=== PATIENT | female | born 1995 | race Caucasian/White ===

== ENCOUNTER 2023-03-14 18:46 | Outpatient (CLI) | payer MEDICAID, OTHER ==
[2023-03-14 19:30] VITALS: BP 132/75
[2023-03-14 19:42] VITALS: BP 130/69
--- NOTE | 2023-03-16 13:48 | Physician Query-Final Dx ---
ANDREW,03/16/23 1348: Clinic Account Progress/Dx Physician Query: Please give diagnosis Please include # weeks gestation Date of Service March 14, 2023 at 18:46 ASHLEY VILLAFANA DO 03/17/23 1818: Clinic Account Progress/Dx DIAGNOSIS: Diagnosis 39 wk GA contractions, not in active labor ANDREW,NovMarch 16, 2023 13:48 ASHLEY VILLAFANA DO March 17, 2023 18:18
== END 2023-03-14 19:57 | disposition home or self-care (01) ==
LOC: WSo 18:46 → LDRP 18:46 → WSo 19:57
PROVIDERS: ATTEND Family Medicine
DX: O47.1 False labor at or after 37 completed weeks of gestation (principal); Z3A.39 39 weeks gestation of pregnancy
CPT/HCPCS: 99213

== ENCOUNTER 2023-03-28 17:09 | Inpatient (IN) | payer MEDICAID ==
[~2023-03-28] VITALS: Ht 170 cm; Wt 127.0 kg
--- OUTSIDE RECORDS SUMMARY | 2023-03-28 17:32 | XMS REPORT | Clinical Summary ---
Author Author [facility] Organization [facility] Address Unknown Phone Unavailable Care Team Providers Care Manager Green Name Role Phone Chinyere Delaney APRN PCP Allergies Comments Active Allergy Reactions Criticality Noted Date Ondansetron Hcl 03/07/2023 Medications End Date Status Medication Sig Dispensed Refills Start Date Active famotidine (PEPCID) 20 MG 0 tablet Active Problems Estimated Date of Delivery Comments Yes 03/23/2023 No additional problems on file Encounters Care Team Description Date Type Department Rafita Adams MD Pelvic pain in , antepartum, th ird trimester (Primary Dx) Discharge Disposition: Another Health Care Institution Not Defined 03/07/2023 Emergency [facility] 12:19 AM [facility] CDT - [address] [facility] 03/07/2023 [place] [address] 12:48 AM [phone] CDT from Last 3 Months Social History Date Tobacco Use Types Packs/Day Years Used Smoking Tobacco: Every Cigarettes 0.5 Day Smokeless Tobacco: Never Tobacco Cessation: Ready to Quit: Not As ked; Counseling Given: Not Answered Comments Alcohol Use Standard Drinks/Week Never 0 (1 standard drink = 0.6 o z pure alcohol) Date Recorded PHQ-2 Answer 03/07/2023 Part 1 Score: 0 Date Recorded [facility] Transportation Needs Answer Transportation Needs Not on file 03/07/2023 In the next 24 hours or after discharge, are you No in a situation where housing, food, or transportation is a concern, or does th e patient demonstrate the inability to care for s elf that could result in imminent harm Date Recorded [facility] Food Insecurity Answer Food Insecurity Not on file 03/07/2023 In the next 24 hours or after discharge, are you No in a situation where housing, food, or transportation is a concern, or does th e patient demonstrate the inability to care for s elf that could result in imminent harm Date Recorded [facility] Housing Answer Housing Insecurity Not on file 03/07/2023 In the next 24 hours or after discharge, are you No in a situation where housing, food, or transportation is a concern, or does th e patient demonstrate the inability to care for s elf that could result in imminent harm Estimated Date of Delivery Comments Yes 03/23/2023 Date Recorded Sex and Gender Information Value Sex Assigned at Not on file Gender Identity Not on file Sexual Orientation Not on file Last Filed Vital Signs Reading Time Taken Comments Vital Sign 129/68 03/07/2023 12:32 AM CDT Blood Pressure 93 03/07/2023 12:32 AM CDT Pulse 36.1 C (97 F) 03/07/2023 12:32 AM CDT Temperature 17 03/07/2023 12:32 AM CDT Respiratory Rate 97% 03/07/2023 12:20 AM CDT Oxygen Saturation - - Inhaled Oxygen Concentration 121.6 kg (268 lb) 03/07/2023 12:05 AM CDT Weight 172.7 cm (5' 8") 03/07/2023 12:05 AM CDT Height 40.75 03/07/2023 12:05 AM CDT Body Mass Index Plan of Treatment Health Maintenance Due Date Last Done Comments Hepatitis C Screen 1994 Td/Tdap# 1994 Tobacco Cessation 1994 Counseling # COVID-19 Vaccine (#1) 03/05/1995 Pneumococcal Vaccine: 2000 Pediatrics (0 to 5 Years) and At-Risk Patients (6 to 64 Years) (1 - PCV) Cervical Cancer Screening 2015 via Pap Smear Social Determinants of 11/14/2022 Health# Influenza Vaccine (Season 08/14/2023 Ended) Results Not on filefrom Last 3 Months Insurance Type Payer Benefit Subscriber ID Effective Phone Address Plan / Dates Group MEDICAID MANAGED CARE [facility] [id number] 2022- [address] [facility] [employer] [address] [place] [address] Care Teams Start Date End Date Manager Green Relationship Specialty 10/01/22 Chinyere Delaney APRN PCP - General Family Medicine [address] [place] [address]
--- OUTSIDE RECORDS SUMMARY | 2023-03-28 17:32 | XMS REPORT ---
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 confirmed 455443693 Problem Amenorrhea N91.2 confirmed 47276561 Problem Gallstones and inflammation of gallbladder with obstructio n K80.19 Problem resolved confirmed ALLERGIES No Known Allergies ENCOUNTERS from 1994 to 2023-02-21 Encounter Location Date Provider Diagnosis [facility] [address] [facility] [id number] [place] [address] Feb, SILVERIO ENCARNACION IMMUNIZATIONS Vaccine Route Administration Date Status PRIVATE TDAP (BOOSTRIX) IM Intramuscular January 19, 2023 Adminis tered influenza IIV4 (history) Unknown Oct 06, 2022 Adminis tered SOCIAL HISTORY Sex Assigned At : Social History Observation Description Sex Assigned At Unknown Alcohol Screen (Audit-C) Question Answer Notes Did you have a drink containing alcohol in the past year? No Points 0 Interpretation Negative PHQ2 Question Answer Notes In the last 2 weeks, how often have you had little interest or pleasure in doing things? Not at all In the last 2 weeks, how often have you been feeling down, depressed, or hopeless? Not at all Total PHQ2 Score 0 REASON FOR REFERRAL No Information VITAL SIGNS No information MEDICATIONS No Information PROCEDURES No Information RESULTS No Results REASON FOR VISIT Re:Financial Assistance Application Completed MEDICAL (GENERAL) HISTORY Type Description Date Medical History Meningitis Medical History Gallstones and inflammation of gallbladder with obstruction (resolved 02/15/2023) Surgical History Amputation of right leg 1993 Surgical History Galbladder removal 10/05/2022 Hospitalization History sugeries Hospitalization History Galbladder surgey 09/2022 Goals Section No Information Health Concerns No Information MEDICAL EQUIPMENT No Information MENTAL STATUS No Information FUNCTIONAL STATUS No Information ASSESSMENTS No Information PLAN OF TREATMENT Next Appt Details Provider Name:JAIMEE GARCIA, 2023-03-02 08 :40:00 AM, [address] [place] [address], [phone], Provider Name:JAIMEE GARCIA 2023-03-09 08 :40:00 AM, [address] [place] [address], [phone], Provider Name:JAIMEE GARCIA, 2023-03-16 08 :40:00 AM, [address] [place] [address], [phone], Provider Name:JOSE ANTONIO JEAN, 2023-03-23 09:00:00 AM, [address] [place] [address], [phone], Provider Name:JAIMEE GARCIA, 2023-03-28 08 :40:00 AM, [address] [place] [address], [phone], Provider Name:MICKI DUARTE, 2023-07-11 09:00:00 AM, [address] [facility], [id number], [address], Insurance Providers Payer Name Payer Address Payer Phone Insured Name Patient Relati onship to Insured Coverage Start Date Coverage End Date Subscriber Number Group Nu mber [employer] [address] [employer] [facility] [address] Madeline Vogt Self - patient is the insured [id number] [place] [address] [address] [facility] [address] Madeline Vogt Self - patient is the insured [id number] [place] [address] [address] [facility] [address] Madeline Vogt Self - patient is the insured [id number]
--- OUTSIDE RECORDS SUMMARY | 2023-03-28 17:32 | XMS REPORT | Encounter Summary ---
Author Author [facility] Organization [facility] Address Unknown Phone Unavailable Care Team Providers Care Continuous Drier Helper Name Role Phone Chinyere Delaney APRN PCP Reason for Visit * Reason Comments Problem Pain in sides and abdomin s tarting at 8pm has not felt baby move in 6 hrs. Emesis x1. 37 weeks 4 days. Dilated 3 w eeks ago at 1 with contractions when seen in [place]. Encounter Details Care Team Description Date Type Department Rafita Adams MD [address] [place] [address] Pelvic pain in , antepartum, th ird trimester (Primary Dx) Discharge Disposition: Another Health Care Institution Not Defined 03/07/2023 Emergency [facility] 12:19 AM [facility] CDT - [address] [facility] 03/07/2023 [place] [address] 12:48 AM [phone] CDT Social History Date Tobacco Use Types Packs/Day Years Used Smoking Tobacco: Every Cigarettes 0.5 Day Smokeless Tobacco: Never Tobacco Cessation: Ready to Quit: Not As ked; Counseling Given: Not Answered Comments Alcohol Use Standard Drinks/Week Never 0 (1 standard drink = 0.6 o z pure alcohol) Date Recorded PHQ-2 Answer 03/07/2023 Part 1 Score: 0 Date Recorded [facility] Transportation Needs Answer Transportation Needs Not on file 03/07/2023 In the next 24 hours or after discharge, are you No in a situation where housing, food, or transportation is a concern, or does th e patient demonstrate the inability to care for s elf that could result in imminent harm Date Recorded [facility] Food Insecurity Answer Food Insecurity Not on file 03/07/2023 In the next 24 hours or after discharge, are you No in a situation where housing, food, or transportation is a concern, or does th e patient demonstrate the inability to care for s elf that could result in imminent harm Date Recorded [facility] Housing Answer Housing Insecurity Not on file 03/07/2023 In the next 24 hours or after discharge, are you No in a situation where housing, food, or transportation is a concern, or does th e patient demonstrate the inability to care for s elf that could result in imminent harm Date Recorded Sex and Gender Information Value Sex Assigned at Not on file Gender Identity Not on file Sexual Orientation Not on file documented as of this encounter Last Filed Vital Signs Reading Time Taken [...] 03/07/2023 12:05 AM CDT Body Mass Index documented in this encounter Medications at Time of Discharge Start Date End Date Medication Sig Dispensed Refills famotidine (PEPCID) 20 MG 0 tablet documented as of this encounter ED Notes * Rafita Adams MD - 03/07/2023 12:08 AM CDT 03/06/2023 [facility] History Chief Complaint Patient presents with Problem Pain in sides and abdomin starting at 8pm has not felt baby move in 6 hrs. Yudy sis x1. 37 weeks 4 days. Dilated 3 weeks ago at 1 with contractions when seen in [place]. 27-year-old female presents to the emergency department due to complaint of bila teral flank pain with radiation to the pelvis. She is 37 weeks 4 days . G1, P0. She denies leakage of fluid, bloody show, vaginal discharge. Pain be rita approximately 4 hours ago and has been worsening since. She last felt movement at 6 PM. She is also complaining of nausea and vomiting. Her CLINICAL SUPPORT SPECIALIST is Dr. Arianne Mera in [place]. The history is provided by the patient. Past Medical History: Diagnosis Date Hx of BKA, right (HCC) Meningitis No past surgical history on file. No family history on file.: Social History Tobacco Use Smoking status: Every Day Packs/day: 0.50 Types: Cigarettes Smokeless tobacco: Never Vaping Use Vaping status: Never Used Substance Use Topics Alcohol use: Never Drug use: Never Review of Systems Constitutional: Negative for chills and fever. HENT: Negative for congestion, ear pain and sore throat. Respiratory: Negative for cough and shortness of breath. Cardiovascular: Negative for chest pain and leg swelling. Gastrointestinal: Positive for abdominal pain, nausea and vomiting. Negative for diarrhea. Genitourinary: Positive for flank pain and pelvic pain. Negative for dysuria, fr equency, hematuria, urgency, vaginal bleeding, vaginal discharge and vaginal kajal n. Musculoskeletal: Negative for neck pain and neck stiffness. Skin: Negative for rash. Neurological: Negative for dizziness and headaches. Psychiatric/Behavioral: Negative for agitation and confusion. Physical Exam BP 119/68 | Pulse 89 | Temp 97 F (36.1 C) (Temporal) | Resp 21 | Ht 1.72 7 m (5' 8") | Wt 121.6 kg (268 lb) | SpO2 97% | BMI 40.75 kg/m Physical Exam Vitals and nursing note reviewed. Exam conducted with a mill roll rewinder present (JUSTEN Fiore). Constitutional: Appearance: She is well-developed. Comments: Appears to be in episodic pain HENT: Head: Normocephalic and atraumatic. Mouth/Throat: Mouth: Mucous membranes are dry. Eyes: Pupils: Pupils are equal, round, and reactive to light. Cardiovascular: Rate and Rhythm: Normal rate and regular rhythm. Heart sounds: Normal heart sounds. No murmur heard. No friction rub. No gallop. Pulmonary: Effort: Pulmonary effort is normal. Breath sounds: Normal breath sounds. Abdominal: General: Bowel sounds are normal. Palpations: Abdomen is soft. Tenderness: There is no abdominal tenderness. There is no guarding or rebound . Comments: Gravid uterus Genitourinary: Comments: heart tones 142. Sterile cervical check: Cervix is fingertip, head down, no bloody show. Sterile speculum exam: No pooling of fluid or bleeding. Musculoskeletal: Cervical back: Normal range of motion and neck supple. Skin: General: Skin is warm and dry. Neurological: Mental Status: She is alert and oriented to person, place, and time. Psychiatric: Mood and Affect: Mood normal. Behavior: Behavior normal. MDM Medical Decision Making: Patient presents to the emergency department due to complaint of bilateral flan k pain radiating down into the abdomen and pelvis associated with nausea and vom iting. She is 37 weeks 4 days . G1, P0. CLINICAL SUPPORT SPECIALIST is in [facility] Pain has been present for approximately 4 hours and now intensifying. She h as not felt movement since 6 PM. Sterile cervical check shows no bloody s how, cervix is nondilated and baby is head down. heart tones reassuring. Sterile speculum exam shows no pooling of fluid. I do not have the equipment or testing capabilities necessary to rule out labor. I explained this to patient and partner at the bedside. I discussed this case with Dr. Izquierdo, CLINICAL SUPPORT SPECIALIST at [facility], who agrees to accept the patient in transfer. complicated acute illness or injury with systemic symptoms that poses threat to life or bodily functions Amount and/or complexity of Data Reviewed Independent Historian:spouse Escalation of Care: Considered hospitalization Details: Emergent transfer to [facility] to rule out labor. ED Course Procedures 12:15 AM I discussed this case with Dr. Izquierdo, CLINICAL SUPPORT SPECIALIST at [facility], who agrees to accept the patient in transfer to rule out labor. Time with Patient: 10 Minutes ED Clinical Impression 1. Pelvic pain in , antepartum, third trimester ED Disposition Transfer to Another Facility Rafita Adams MD 03/07/23 0024 documented in this encounter Plan of Treatment Not on filedocumented as of this encounter Visit Diagnoses Diagnosis Pelvic pain in , antepartum, t hird trimester - Primary documented in this encounter Care Teams Start Date End Date Continuous Drier Helper Relationship Specialty 10/01/22 Chinyere Delaney APRN PCP - General Family Medicine [address] [place] [address] documented as of this encounter
--- OUTSIDE RECORDS SUMMARY | 2023-03-28 17:33 | XMS REPORT ---
Author Author 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 confirmed 018376443 Problem Amenorrhea N91.2 confirmed 69331162 Problem Gallstones and inflammation of gallbladder with obstructio n K80.19 confirmed ALLERGIES No Known Allergies ENCOUNTERS from 1994 to 2023-02-04 Encounter Location Date Provider Diagnosis [facility] [address] [facility] [id number] [place] [address] Feb, SILVERIO ENCARNACION Status post amputation of ri ght foot Z89.431 IMMUNIZATIONS Vaccine Route Administration Date Status influenza IIV4 (history) Unknown Oct 06, 2022 Adminis tered PRIVATE TDAP (BOOSTRIX) IM Intramuscular January 19, 2023 Adminis tered SOCIAL HISTORY Sex Assigned At [...] REASON FOR REFERRAL No Information VITAL SIGNS Height 68 in Feb, Height-cm 172.72 cm Feb, Weight 278.3 lbs Feb, Weight-kg 126.23 kg Feb, Temperature 98.0 degrees Fahrenheit Feb, Heart Rate 84 bpm Feb, Respiratory Rate 18 bpm Feb, BMI 42.31 kg/m2 Feb, Blood pressure systolic 110 mmHg Feb, Blood pressure diastolic 68 mmHg Feb, MEDICATIONS Medication SIG (Take, Route, Frequency, Duration) Notes Start Da te End Date Status Famotidine 20 MG 1 tablet Orally Once a day for 30 days Nov, Active PROCEDURES No Information RESULTS No Results REASON FOR VISIT Establish Care98.0; She is wanting to get a prosthetic for right leg, which was amputated due to meningitis and does not have insurance. -alarson MEDICAL (GENERAL) HISTORY Type Description Date Medical History Meningitis Surgical History Amputation of right leg 1993 Surgical History Galbladder removal 10/05/2022 Hospitalization History sugeries Hospitalization History Galbladder surgey 09/2022 Goals Section No Information Health Concerns No Information MEDICAL EQUIPMENT No Information MENTAL STATUS No Information FUNCTIONAL STATUS No Information ASSESSMENTS Encounter Date Diagnosis Assessment Notes Treatment Notes Treatm ent Clinical Notes Feb, Status post amputation of right foot (ICD-10 - Z 89.431) AT this point unsure of who would be of servive to help- the local pt department gave the rec of card hanger prosthetics. we will reach out to the pt and the patient navigator to see if they have any knowelge of it. PLAN OF TREATMENT Treatment Notes Assessment Notes Clinical Notes Status post amputation of right foot AT this point uns ure of who would be of servive to help- the local pt department gave the rec of card h[employer] prost[employer]. we will reach out to the pt and the patient navigator to see if they have any know elge of it. Next Appt Details prn Reason: Provider Name:JAIMEE GARCIA, 2023-02-16 08 :40:00 AM, [address] [place] [address], [id number], [phone], Provider Name:JAIMEE GARCIA 2023-03-02 08 :40:00 AM, [address] [place], [phone], Provider Name:JAIMEE GARCIA, 2023-03-09 08 :40:00 AM, [address] [place] [address], [phone], Provider Name:JAIMEE GARCIA, 2023-03-16 08 :40:00 AM, [address] [place] [address], [phone], Provider Name:JOSE ANTONIO JEAN, 2023-03-23 09:00:00 AM, [address] [place] [address], [phone], Provider Name:JAIMEE GARCIA, 2023-03-28 08 :40:00 AM, [address] [place] [address], [phone], Provider Name:MICKI DUARTE, 2023-07-11 09:00:00 AM, [address] [facility], [id number], [place], [address], Insurance Providers Payer Name Payer Address Payer Phone Insured Name Patient Relati onship to Insured Coverage Start Date Coverage End Date Subscriber Number Group Nu mber [facility] [address] [facility] [address] Madeline Vogt Self - patient is the insured [id number] [facility] [address] [facility] [address] Madeline Vogt Self - patient is the insured [id number] [facility] [address] Madeline Vogt Self - patient is the insured [id number]
[2023-03-28] MEDS ORDERED: AMPICILLIN FOR IV USE 2,000 MG in NS (IVPB) 50 ML IV SCH (17:40)
[2023-03-28] MEDS ORDERED: LACTATED RINGERS 1,000 ML IV SCH (17:45)
[2023-03-28] MEDS ORDERED: MINERAL OIL 30 ML UDC TOP PRN (17:45)
[2023-03-28] MEDS ORDERED: AMPICILLIN 2,000 MG/14.8 ML (IV USE) ONE (17:57)
[2023-03-28] MEDS ORDERED: NS (IVPB) 50 ML ONE (17:57)
[2023-03-28] MEDS ORDERED: D5 LR IV SOLUTION 1,000 ML IV ONE (17:58)
[2023-03-28] MEDS: D5 LR IV SOLUTION 1,000 ML IV SCH (18:03)
[2023-03-28 18:04] LABS: BASOPHILS % (AUTO) 0 % (0-10); EOSINOPHILS # (AUTO) 0.2 10^3/uL (0.0-0.3); EOSINOPHILS % (AUTO) 1 % (0-10); HEMATOCRIT 33 % (35-52); HEMOGLOBIN 11.2 g/dL (11.5-16.0); LYMPHOCYTES # (AUTO) 1.5 10^3/uL (1.0-4.0); LYMPHOCYTES % (AUTO) 12 % (12-44); MEAN CORPUSCULAR HEMOGLOBIN 29 pg (25-34); MEAN CORPUSCULAR HGB CONC 34 g/dL (32-36); MEAN CORPUSCULAR VOLUME 87 fL (80-99); MONOCYTES # (AUTO) 0.6 10^3/uL (0.0-1.0); MONOCYTES % (AUTO) 5 % (0-12); NEUTROPHILS # (AUTO) 10.3 10^3/uL (1.8-7.8); NEUTROPHILS % (AUTO) 81 % (42-75); PLATELET COUNT 237 10^3/uL (130-400); WHITE BLOOD COUNT 12.7 10^3/uL (4.3-11.0)
[2023-03-28 18:19] VITALS: BP 143/68
[2023-03-28 20:20] VITALS: BP 131/64
[2023-03-28] MEDS ORDERED: NS IV 500 ML 500 ML IV SCH (20:30)
[2023-03-28] MEDS ORDERED: NS IV 500 ML 500 ML ONE (20:42)
[2023-03-28] MEDS: AMPICILLIN FOR IV USE 1,000 MG in NS (IVPB) 50 ML IV SCH (21:04)
[2023-03-28] MEDS: CATHETER FLUSH 10 ML SYR IV SCH (22:00)
[2023-03-29] VITALS (67 sets, daily range): BP systolic 115–163; BP diastolic 55–101
[2023-03-29] MEDS ORDERED: TERBUTALINE INJ 1 MG/ML (BRETHINE) AMP SC PRN (00:30)
[2023-03-29] MEDS: D5 LR IV SOLUTION 1,000 ML IV SCH ×3 (02:05→16:40)
[2023-03-29] MEDS: AMPICILLIN FOR IV USE 1,000 MG in NS (IVPB) 50 ML IV SCH ×5 (02:05→18:56)
[2023-03-29] MEDS ORDERED: fentaNYL 2 mcg/ml BUPIVA 0.125 100 ML ONE (05:03)
[2023-03-29] MEDS ORDERED: BUPIVACAINE 0.25% 10 ML (SENSORCAINE) VIAL ONE (05:44)
[2023-03-29] MEDS ORDERED: fentaNYL INJ 100 MCG/2 ML AMP ONE (05:44)
[2023-03-29] MEDS ORDERED: diphenhydrAMINE 50 MG/ML INJ (BENADRYL) IV PRN (06:15)
[2023-03-29] MEDS ORDERED: LACTATED RINGERS 1,000 ML IV SCH (06:15)
[2023-03-29] MEDS: fentaNYL 2 mcg/ml BUPIVA 0.125 100 ML EPI SCH ×2 (06:15→14:01)
[2023-03-29] MEDS ORDERED: NALOXONE 0.4 MG/ML 1 ML (NARCAN) VIAL IV PRN (06:15)
[2023-03-29] MEDS: CATHETER FLUSH 10 ML SYR IV SCH ×2 (06:24→22:00)
--- NOTE | 2023-03-29 09:17 | Labor Progress Note ---
Labor Progress Note Labor Progress Note Date Seen by Provider: March 29, 2023 Time Seen by Provider: 09:00 Subjective: Pt denies complaints. Epidural in place, patient is comfortable. Objective: Cervical exam: 3-4cm Consistency: 100% effaced Position: anterior cervix Presentation: vertex heart tones: average beats to beat variability at this time, reactive FHT at this time; overnight had periods of decreased variability with occassional mild decels, mostly variable decels with occassional questionable late decel. One dose of cytotec given overnight. Tocometer: every 5 min Assessment/Plan: Madeline Vogt is a (27 /Para / ,Gestational Age (wks)39 here for 3. CEFM/TOCO Anesthesia: epidural FSE placed; AROM with clear fluid. Anticipate vaginal delivery. Vitals - Labs Vital Signs - I&O Vital Signs Date Time Temp Pulse Resp B/P (MAP) Pulse Ox O2 Delivery O2 Flow Rate FiO2 03/29/23 06:35 86 130/71 (90) 98 Room Air 03/29/23 06:32 87 132/71 (91) Room Air 03/29/23 06:29 89 132/75 (94) 98 Room Air 03/29/23 06:26 92 133/71 (91) 98 Room Air 03/29/23 06:23 87 134/74 (94) 03/29/23 06:20 80 128/69 (88) 99 Room Air 03/29/23 06:14 81 131/61 (84) 99 Room Air 03/29/23 06:10 36.1 86 18 140/60 (86) 99 Room Air 03/29/23 06:08 86 138/66 (90) 99 Room Air 03/29/23 06:05 77 146/70 (95) 99 Room Air 03/29/23 06:03 70 143/69 (93) 03/29/23 05:59 74 134/65 (88) 99 Room Air 03/29/23 05:56 88 142/73 (96) 99 Room Air 03/29/23 05:53 76 133/73 (93) 03/29/23 05:48 76 136/78 (97) 99 Room Air 03/29/23 03:51 36.2 68 22 125/86 (99) 99 Room Air 03/29/23 00:40 36.0 94 20 127/66 (86) 98 Room Air 03/28/23 20:20 36.2 85 22 131/64 (86) 98 Room Air 03/28/23 18:19 36.8 101 18 98 Room Air I & O 03/29/23 07:00 Intake Total 1600 ml Balance 1600 ml Labs Laboratory Tests 03/28/23 17:45: White Blood Count 12.7H, Red Blood Count 3.84, Hemoglobin 11.2L, Hematocrit 33L, Mean Corpuscular Volume 87, Mean Corpuscular Hemoglobin 29, Mean Corpuscular Hemoglobin Concent 34, Red Cell Distribution Width 14.3, Platelet Count 237, Mean Platelet Volume 10.0, Immature Granulocyte % (Auto) 1, Neutrophils (%) (Aut o) 81H, Lymphocytes (%) (Auto) 12, Monocytes (%) (Auto) 5, Eosinophils (%) (Auto) 1, Basophils (%) (Auto) 0, Neutrophils # (Auto) 10.3H, Lymphocytes # (Auto) 1.5, Monocytes # (Auto) 0.6, Eosinophils # (Auto) 0.2, Basophils # (Auto) 0.0, Immature Granulocyte # (Auto) 0.1 ASHLEY VILLAFANA DO March 29, 2023 09:17
[2023-03-29] MEDS ORDERED: OXYTOCIN PRE-MIX DRIP 500 ML IV SCH ×2 (11:30)
[2023-03-29] MEDS ORDERED: LIDOCAINE 1% INJ 10 ML VIAL ONE (19:08)
[2023-03-29] MEDS ORDERED: METHYLERGONOVINE 0.2 MG/ML (METHERGINE) AMP ONE (19:30)
[2023-03-29] MEDS ORDERED: METHYLERGONOVINE 0.2 MG/ML (METHERGINE) AMP IM ONE (19:45)
--- NOTE | 2023-03-29 19:52 | History & Physical-OB ---
OB - Chief Complaint & HPI Date/Time Date of Admission: Date of Admission: March 28, 2023 at 17:09 Date seen by a Provider: March 29, 2023 Time Seen by a Provider: 17:30 Chief Complaint/History OB-Reason for Admission/Chief: Induction of Labor Hx : 1 Hx Para: 0 Expected Date of Delivery: March 26, 2023 Gestational Age in Weeks: 40 Gestational Age in Days: 2 History of Labs A+, Ab neg, Rub Imm HIV/RPR/HepB/C NR Normal 1 hr GTT GBS Pos Allergies and Home Medications Allergies Coded Allergies: ondansetron (Verified Allergy, Unknown, 03/14/23) Patient Home Medication List Home Medication List Reviewed: Yes No Active Prescriptions or Reported Meds OB - History Hx of Present Care: Yes Ultrasounds: Normal mid trimester US Obstetrical Complications: None Medical Complications: None Obstetrical History Hx : 1 Patient Past Medical History 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 Social History/Family History Alcohol Use: Denies Use Recreational Drug Use: No Smoking Cessation: Never smoker 2nd Hand Smoke Exposure: No Immunizations Influenza Vaccine Up-to-Date: Yes; Up-to-Date Tetanus Booster (TDap): Less than 5yrs (01/19/23) Rubella: immune RPR/VDRL: Negative GBS Status: Positive HBsAG: Negative OB - Admission Exam Physical Exam Vitals: Vital Signs 03/29/23 03/29/23 16:20 18:50 Temp 36.0 Pulse 73 Resp 20 B/P (MAP) 128/74 (92) Pulse Ox 100 O2 Delivery Room Air HEENT: NCAT Heart: Rhythm Normal Lungs: Clear Abdomen: Gravid Cervical Dilatation: 10cm Effacement: 100% Station: +1 Membranes: Ruptured Amniotic Fluid: Clear Heart Rate: 130's Accelerations: Accelerations Present Decelerations: No Decelerations Short Term Variability: Present Intermediate Variability: Average (6-25) Contractions on Admission: < 5 Minutes Apart Dyer Scoring Tool (Modified) Dilation (cm): 1-2cm (1) Effacement (%): 0-30% (0) Descent/Station: -2 (1) Cervix Consistency: Medium(1) Cervix Position: Middle/Mid-Position (1) OB - Assessment/Plan/Diagnosis Assessment Assessment: induction of labor Admission Dx Third Trimester 40 week gestation GBS + in Admission Status: Inpatient Order (span 2 midnights) Reason for Inpatient Admission: Labor and immediate post care Plan Other Plan 27 yo @ 40.3 wga here for elective IOL Plan - GBS Positive, start and continue ampicillin - Epidural for pain control - AROM clear @ [address] Brand - Augmentation with pitocin if needed - Expect Vaginal delivery Copy Copies To 1: JAIMEE GARCIA MD, HOLLY R MD March 29, 2023 19:52
--- NOTE | 2023-03-29 19:55 | OB Labor & Delivery Record ---
Vag Delivery Note Vag Delivery Note Date of Delivery: 03/29/23 Preoperative Diagnosis: Madeline Vogt is a (27 /Para 1 / 0,Gestational Age (wks)40.3 wga here for elective IOL Postoperative Diagnosis: Same Surgeon: JAIMEE GARCIA MD Healthcare Marketer: None Anesthesia: Epidural Delivery Type: @ 1922 Findings: Viable female LGA , apgars 8/9, weight 8#10, 3915 grams Lacerations: 2nd degree perineal and left labial abrasion Intact placenta with 3 vessel cord. No nuchal cord, body cord or shoulder dystocia Estimated Blood Loss: 120 ml Complications: None Condition: Stable Description of Procedure: The patient is a 27 year old female who presented for elective IOL. She was admitted and informed consent was obtained. Her labor course was labor augmentation with pitocin. She progressed to complete dilatation and began to push. She was then set up for delivery. The 's head was delivered atraumatically in the KEIKO position. The shoulders and remainder of the infant's body were then delivered without difficulty. Upon delivery, the infant was vigorous and placed on maternal chest and the mouth and nares were bulb suctioned. After a 3 min delay cord was doubly clamped and cut by FOB and the infant remained on maternal chest and attended to by nursery nurse. An intact placenta with 3-vessel cord delivered via Tanya and there was found to be minimal bleeding.~ Vigorous fundal massage was performed and the fundus was found to be firm. IV oxytocin was given. Examination of the vagina and perineum revealed a 2nd degree perineal laceration repaired in the usual fashion with 3-0 vicryl rapide suture and a left labial abrasion that did not require repair. Following the repair, sponge, instrument and needle counts were correct. Mom and baby were both in stable condition in the labor suite. Vitals - Labs Vital Signs - I&O Vital Signs Date Time Temp Pulse Resp B/P (MAP) Pulse Ox O2 Delivery O2 Flow Rate FiO2 03/29/23 18:50 73 20 128/74 (92) 100 Room Air 03/29/23 18:35 76 20 131/71 (91) 100 Room Air 03/29/23 18:20 76 20 135/73 (93) 100 Room Air 03/29/23 18:05 82 20 136/73 (94) 100 Room Air 03/29/23 17:50 90 20 123/62 (82) 100 Room Air 03/29/23 17:35 78 20 127/65 (85) 100 Room Air 03/29/23 17:20 85 20 145/81 (102) 100 Room Air 03/29/23 17:05 70 20 124/66 (85) 100 Room Air 03/29/23 16:50 74 20 129/60 (83) 91 Room Air 03/29/23 16:35 75 20 131/55 (80) 100 Room Air 03/29/23 16:20 36.0 81 20 137/64 (88) 100 Room Air 03/29/23 16:05 86 20 158/65 (96) 100 Room Air 03/29/23 15:50 85 20 127/78 (94) 100 Room Air 03/29/23 15:35 81 20 122/72 (89) 98 Room Air 03/29/23 15:20 70 20 116/64 (81) 98 Room Air 03/29/23 15:05 36.3 75 20 116/65 (82) 98 Room Air 03/29/23 14:50 75 20 123/63 (83) 98 Room Air 03/29/23 14:35 78 20 132/64 (86) 99 Room Air 03/29/23 14:20 75 20 130/63 (85) 98 Room Air 03/29/23 14:05 75 20 122/70 (87) 98 Room Air 03/29/23 13:50 69 20 119/61 (80) 98 Room Air 03/29/23 13:35 78 18 115/59 (77) 98 Room Air 03/29/23 13:20 78 18 125/65 (85) 99 Room Air 03/29/23 13:05 65 127/69 (88) 98 Room Air 03/29/23 12:50 69 130/63 (85) 98 Room Air 03/29/23 12:35 36.2 89 116/76 (89) 98 Room Air 03/29/23 12:20 71 129/71 (90) 99 Room Air 03/29/23 12:04 74 123/59 (80) 99 Room Air 03/29/23 10:10 71 125/60 (81) 98 Room Air 03/29/23 09:55 71 125/60 (81) 98 Room Air 03/29/23 09:40 76 124/59 (80) 98 Room Air 03/29/23 09:25 74 134/63 (86) 98 Room Air 03/29/23 09:10 83 131/81 (98) 98 Room Air 03/29/23 08:55 80 124/77 (93) 98 Room Air 03/29/23 08:40 77 124/75 (91) 99 Room Air 03/29/23 08:25 36.3 73 119/68 (85) 99 Room Air 03/29/23 08:10 80 121/70 (87) 99 Room Air 03/29/23 07:55 72 121/62 (81) 98 Room Air 03/29/23 07:35 88 127/60 (82) 97 Room Air 03/29/23 07:10 83 132/68 (89) 98 Room Air 03/29/23 06:35 86 130/71 (90) 98 Room Air 03/29/23 06:32 87 132/71 (91) Room Air 03/29/23 06:29 89 132/75 (94) 98 Room Air 03/29/23 06:26 92 133/71 (91) 98 Room Air 03/29/23 06:23 87 134/74 (94) 03/29/23 06:20 80 128/69 (88) 99 Room Air 03/29/23 06:14 81 131/61 (84) 99 Room Air 03/29/23 06:10 36.1 86 18 140/60 (86) 99 Room Air 03/29/23 06:08 86 138/66 (90) 99 Room Air 03/29/23 06:05 77 146/70 (95) 99 Room Air 03/29/23 06:03 70 143/69 (93) 03/29/23 05:59 74 134/65 (88) 99 Room Air 03/29/23 05:56 88 142/73 (96) 99 Room Air 03/29/23 05:53 76 133/73 (93) 03/29/23 05:48 76 136/78 (97) 99 Room Air 03/29/23 03:51 36.2 68 22 125/86 (99) 99 Room Air 03/29/23 00:40 36.0 94 20 127/66 (86) 98 Room Air 03/28/23 20:20 36.2 85 22 131/64 (86) 98 Room Air I & O 03/29/23 07:00 Intake Total 1600 ml Balance 1600 ml JAIMEE GARCIA MD March 29, 2023 19:55
[2023-03-29] MEDS: OXYTOCIN PRE-MIX DRIP 500 ML IV SCH ×2 (20:00→20:29)
[2023-03-29] MEDS ORDERED: BENZOCAINE/MENTHOL (DERMOPLAST) 56 ML CAN TP PRN (20:00)
[2023-03-29] MEDS ORDERED: WITCH HAZEL(TUCKS) 40 EA JAR TOP PRN (20:00)
[2023-03-29] MEDS: IBUPROFEN 600 MG (MOTRIN) TAB PO SCH (22:00)
[2023-03-29] MEDS: ACETAMINOPHEN 500 MG TAB (TYLENOL) PO SCH (22:01)
[2023-03-29 22:05] LABS: BASOPHILS % (AUTO) 0 % (0-10); EOSINOPHILS # (AUTO) 0.1 10^3/uL (0.0-0.3); EOSINOPHILS % (AUTO) 0 % (0-10); HEMATOCRIT 33 % (35-52); HEMOGLOBIN 10.9 g/dL (11.5-16.0); LYMPHOCYTES % (AUTO) 6 % (12-44); MEAN CORPUSCULAR HEMOGLOBIN 29 pg (25-34); MEAN CORPUSCULAR HGB CONC 33 g/dL (32-36); MEAN CORPUSCULAR VOLUME 87 fL (80-99); MEAN PLATELET VOLUME 9.9 fL (9.0-12.2); MONOCYTES # (AUTO) 0.5 10^3/uL (0.0-1.0); MONOCYTES % (AUTO) 4 % (0-12); NEUTROPHILS # (AUTO) 13.4 10^3/uL (1.8-7.8); NEUTROPHILS % (AUTO) 89 % (42-75); PLATELET COUNT 174 10^3/uL (130-400); WHITE BLOOD COUNT 15.1 10^3/uL (4.3-11.0)
[2023-03-29] MEDS: DOCUSATE SODIUM 100 MG (COLACE) CAP PO SCH (22:16)
[2023-03-29 22:18] LABS: ALBUMIN 2.9 GM/DL (3.2-4.5); POTASSIUM 3.6 MMOL/L (3.6-5.0)
[2023-03-29 22:19] LABS: CALCIUM 8.3 MG/DL (8.5-10.1)
[2023-03-29 22:22] LABS: BILIRUBIN,TOTAL 0.6 MG/DL (0.1-1.0)
[2023-03-29 22:24] LABS: CREATININE SERUM 0.64 MG/DL (0.60-1.30)
[2023-03-29 22:25] LABS: BAND NEUTROPHILS 7 %; LYMPHOCYTES % (MANUAL) 7 %; MONOCYTES % (MANUAL) 1 %; NEUTROPHILS % (MANUAL) 85 %; PLATELET ESTIMATE NORMAL; RBC MORPH NORMAL
[2023-03-30 05:03] VITALS: BP 137/77
[2023-03-30] MEDS: ACETAMINOPHEN 500 MG TAB (TYLENOL) PO SCH ×4 (05:05→23:40)
[2023-03-30] MEDS: IBUPROFEN 600 MG (MOTRIN) TAB PO SCH ×4 (05:06→23:40)
[2023-03-30 06:19] LABS: BASOPHILS % (AUTO) 0 % (0-10); EOSINOPHILS # (AUTO) 0.1 10^3/uL (0.0-0.3); EOSINOPHILS % (AUTO) 1 % (0-10); HEMATOCRIT 30 % (35-52); HEMOGLOBIN 9.9 g/dL (11.5-16.0); LYMPHOCYTES # (AUTO) 1.4 10^3/uL (1.0-4.0); LYMPHOCYTES % (AUTO) 12 % (12-44); MEAN CORPUSCULAR HEMOGLOBIN 29 pg (25-34); MEAN CORPUSCULAR HGB CONC 33 g/dL (32-36); MEAN CORPUSCULAR VOLUME 88 fL (80-99); MONOCYTES # (AUTO) 0.6 10^3/uL (0.0-1.0); MONOCYTES % (AUTO) 5 % (0-12); NEUTROPHILS % (AUTO) 83 % (42-75); PLATELET COUNT 158 10^3/uL (130-400); WHITE BLOOD COUNT 12.1 10^3/uL (4.3-11.0)
[2023-03-30 07:50] VITALS: BP 134/62
[2023-03-30] MEDS: DOCUSATE SODIUM 100 MG (COLACE) CAP PO SCH ×2 (08:00→23:40)
[2023-03-30] MEDS: FERROUS SULF 325 MG (IRON) TAB PO SCH (08:00)
[2023-03-30] MEDS: PRENATAL VITAMIN 1 EA TAB PO SCH (08:01)
--- NOTE | 2023-03-30 09:28 | Anesthesia-Regional Post-Op ---
Regional Patient Condition Mental Status: Alert, Oriented x3 Circulation: Same as Pre-Op Headache: Absent Sensation: Full Recovery Motor Block: Absent Post Op Complications Complications None Follow Up Care/Instructions Patient Instructions None needed. Anesthesia/Patient Condition Patient is doing well, no complaints, stable vital signs, no apparent adverse anesthesia problems. No complications reported per nursing. CHEYENNE HUNT CRNA March 30, 2023 09:28
--- NOTE | 2023-03-30 09:45 | Progress Note ---
Objective Exam Last Set of Vital Signs Vital Signs Date Time Temp Pulse Resp B/P (MAP) Pulse Ox O2 Delivery O2 Flow Rate FiO2 03/30/23 07:50 36.6 90 18 134/62 (86) 98 Room Air Capillary Refill : Less Than 3 Seconds I&O Intake and Output 03/30/23 00:00 Intake Total 4112.5 ml Balance 4112.5 ml Intake IV Total 4112.5 ml Blood Loss Quantification Method 120 ml Results/Procedures Lab Laboratory Tests 03/29/23 21:30: Urine Protein 16H, Urine Creatinine 61, Urine Protein/Creatinine Ratio 0.26 03/29/23 21:55: White Blood Count 15.1H, Red Blood Count 3.79L, Hemoglobin 10.9L, Hematocrit 33L , Mean Corpuscular Volume 87, Mean Corpuscular Hemoglobin 29, Mean Corpuscular Hemoglobin Concent 33, Red Cell Distribution Width 14.2, Platelet Count 174, Mean Platelet Volume 9.9, Immature Granulocyte % (Auto) 1, Neutrophils (%) (Auto) 89H, Lymphocytes (%) (Auto) 6L, Monocytes (%) (Auto) 4, Eosinophils (%) (Auto) 0, Basophils (%) (Auto) 0, Neutrophils # (Auto) 13.4H, Lymphocytes # (Auto) 1.0, Monocytes # (Auto) 0.5, Eosinophils # (Auto) 0.1, Basophils # (Auto) 0.0, Immature Granulocyte # (Auto) 0.1, Neutrophils % (Manual) 85, Lymphocytes % (Manual) 7, Monocytes % (Manual) 1, Band Neutrophils 7, Platelet Estimate NORMAL, Blood Morphology Comment NORMAL, Sodium Level 138, Potassium Level 3.6, Chloride Level 112H, Carbon Dioxide Level 15L, Anion Gap 11, Blood Urea Nitrogen 12, Creatinine 0.64, Estimat Glomerular Filtration Rate 123, BUN/Creatinine Ratio 19, Glucose Level 115H, Calcium Level 8.3L, Corrected Calcium 9.2, Total Bilirubin 0.6, Aspartate Amino Transf (AST/SGOT) 17, Alanine Aminotransferase (ALT/SGPT) 12, Alkaline Phosphatase 147H, Total Protein 6.0L, Albumin 2.9L 03/30/23 06:11: White Blood Count 12.1H, Red Blood Count 3.41L, Hemoglobin 9.9L, Hematocrit 30L, Mean Corpuscular Volume 88, Mean Corpuscular Hemoglobin 29, Mean Corpuscular Hemoglobin Concent 33, Red Cell Distribution Width 14.3, Platelet Count 158, Mean Platelet Volume 10.0, Immature Granulocyte % (Auto) 0, Neutrophils (%) (Auto) 83H, Lymphocytes (%) (Auto) 12, Monocytes (%) (Auto) 5, Eosinophils (%) (Auto) 1, Basophils (%) (Auto) 0, Neutrophils # (Auto) 10.0H, Lymphocytes # (Auto) 1.4, Monocytes # (Auto) 0.6, Eosinophils # (Auto) 0.1, Basophils # (Auto) 0.0, Immature Granulocyte # (Auto) 0.0 Assessment/Plan Assessment/Plan Assessment & Plan PPD#1 s/p 2nd degree laceration repaired Routine care. ASHLEY VILLAFANA DO March 30, 2023 09:45
--- NOTE | 2023-03-30 10:17 | Progress Note ---
Subjective Subjective/Events-last exam Doing well. Bleeding slowed. Objective Exam Last Set of Vital Signs Vital Signs Date Time Temp Pulse Resp B/P (MAP) Pulse Ox O2 Delivery O2 Flow Rate FiO2 03/30/23 07:50 36.6 90 18 134/62 (86) 98 Room Air Capillary Refill : Less Than 3 Seconds I&O Intake and Output 03/29/23 23:59 Intake Total 4112.5 ml Balance 4112.5 ml Intake IV Total 4112.5 ml Blood Loss Quantification Method 120 ml General: Alert, Oriented X3, Cooperative Psych/Mental Status: Mood NL Results/Procedures Lab Laboratory Tests 03/29/23 21:30: Urine Protein 16H, Urine Creatinine 61, Urine Protein/Creatinine Ratio 0.26 03/29/23 21:55: White Blood Count 15.1H, Red Blood Count 3.79L, Hemoglobin 10.9L, Hematocrit 33L , Mean Corpuscular Volume 87, Mean Corpuscular Hemoglobin 29, Mean Corpuscular Hemoglobin Concent 33, Red Cell Distribution Width 14.2, Platelet Count 174, Mean Platelet Volume 9.9, Immature Granulocyte % (Auto) 1, Neutrophils (%) (Auto) 89H, Lymphocytes (%) (Auto) 6L, Monocytes (%) (Auto) 4, Eosinophils (%) (Auto) 0, Basophils (%) (Auto) 0, Neutrophils # (Auto) 13.4H, Lymphocytes # (Auto) 1.0, Monocytes # (Auto) 0.5, Eosinophils # (Auto) 0.1, Basophils # (Auto) 0.0, Immature Granulocyte # (Auto) 0.1, Neutrophils % (Manual) 85, Lymphocytes % (Manual) 7, Monocytes % (Manual) 1, Band Neutrophils 7, Platelet Estimate NORMAL, Blood Morphology Comment NORMAL, Sodium Level 138, Potassium Level 3.6, Chloride Level 112H, Carbon Dioxide Level 15L, Anion Gap 11, Blood Urea Nitrogen 12, Creatinine 0.64, Estimat Glomerular Filtration Rate 123, BUN/Creatinine Ratio 19, Glucose Level 115H, Calcium Level 8.3L, Corrected Calcium 9.2, Total Bilirubin 0.6, Aspartate Amino Transf (AST/SGOT) 17, Alanine Aminotransferase (ALT/SGPT) 12, Alkaline Phosphatase 147H, Total Protein 6.0L, Albumin 2.9L 03/30/23 06:11: White Blood Count 12.1H, Red Blood Count 3.41L, Hemoglobin 9.9L, Hematocrit 30L, Mean Corpuscular Volume 88, Mean Corpuscular Hemoglobin 29, Mean Corpuscular Hemoglobin Concent 33, Red Cell Distribution Width 14.3, Platelet Count 158, Mean Platelet Volume 10.0, Immature Granulocyte % (Auto) 0, Neutrophils (%) (Auto) 83H, Lymphocytes (%) (Auto) 12, Monocytes (%) (Auto) 5, Eosinophils (%) (Auto) 1, Basophils (%) (Auto) 0, Neutrophils # (Auto) 10.0H, Lymphocytes # (Auto) 1.4, Monocytes # (Auto) 0.6, Eosinophils # (Auto) 0.1, Basophils # (Auto) 0.0, Immature Granulocyte # (Auto) 0.0 Assessment/Plan Assessment/Plan Assessment & Plan PPD#1 s/p 2nd degree laceration repaired Hb 9.9 Routine care. ASHLEY VILLAFANA DO March 30, 2023 10:17
[2023-03-30 13:30] VITALS: BP 129/71
[2023-03-30 17:10] VITALS: BP 137/77
[2023-03-30] MEDS: CATHETER FLUSH 10 ML SYR IV SCH ×2 (17:23→22:00)
[2023-03-30 23:30] VITALS: BP 138/75
[2023-03-31 05:38] VITALS: BP 135/77
[2023-03-31] MEDS: CATHETER FLUSH 10 ML SYR IV SCH (05:41)
[2023-03-31] MEDS: IBUPROFEN 600 MG (MOTRIN) TAB PO SCH (05:41)
[2023-03-31] MEDS: ACETAMINOPHEN 500 MG TAB (TYLENOL) PO SCH (05:41)
[2023-03-31] MEDS: PRENATAL VITAMIN 1 EA TAB PO SCH (06:37)
[2023-03-31] MEDS: FERROUS SULF 325 MG (IRON) TAB PO SCH (08:43)
[2023-03-31] MEDS: DOCUSATE SODIUM 100 MG (COLACE) CAP PO SCH (08:43)
--- NOTE | 2023-03-31 09:29 | Short Stay Summary ---
Discharge Summary Hospital Course Final Diagnosis: see Hospital Course Hospital Course Date of Admission: March 28, 2023 at 17:09 Admission Diagnosis : G1 at 40w3d IOL GBS+ Family Physician/Provider: Arianne Mera MD Date of Discharge: 03/31/23 Discharge Diagnosis: G1 at 40w3d IOL s/p GBS+ anemia of exacerbated from acute blood loss at delivery Hospital Course: s/p 2nd degree laceration repaired Hb 9.9 Routine care. Labs and Pending Lab Test: Laboratory Tests 03/28/23 17:45: White Blood Count 12.7H, Red Blood Count 3.84, Hemoglobin 11.2L, Hematocrit 33L, Mean Corpuscular Volume 87, Mean Corpuscular Hemoglobin 29, Mean Corpuscular Hemoglobin Concent 34, Red Cell Distribution Width 14.3, Platelet Count 237, Mean Platelet Volume 10.0, Immature Granulocyte % (Auto) 1, Neutrophils (%) (Auto) 81H, Lymphocytes (%) (Auto) 12, Monocytes (%) (Auto) 5, Eosinophils (%) (Auto) 1, Basophils (%) (Auto) 0, Neutrophils # (Auto) 10.3H, Lymphocytes # (Auto) 1.5, Monocytes # (Auto) 0.6, Eosinophils # (Auto) 0.2, Basophils # (Auto) 0.0, Immature Granulocyte # (Auto) 0.1, Syphilis Serology Non-Reactive 03/29/23 21:30: Urine Protein 16H, Urine Creatinine 61, Urine Protein/Creatinine Ratio 0.26 03/29/23 21:55: White Blood Count 15.1H, Red Blood Count 3.79L, Hemoglobin 10.9L, Hematocrit 33L, Mean Corpuscular Volume 87, Mean Corpuscular Hemoglobin 29, Mean Corpuscular Hemoglobin Concent 33, Red Cell Distribution Width 14.2, Platelet Count 174, Mean Platelet Volume 9.9, Immature Granulocyte % (Auto) 1, Neutrophils (%) (Auto) 89H, Lymphocytes (%) (Auto) 6L, Monocytes (%) (Auto) 4, Eosinophils (%) (Auto) 0, Basophils (%) (Auto) 0, Neutrophils # (Auto) 13.4H, Lymphocytes # (Auto) 1.0, Monocytes # (Auto) 0.5, Eosinophils # (Auto) 0.1, Basophils # (Auto) 0.0, Immature Granulocyte # (Auto) 0.1, Neutrophils % (Manual) 85, Lymphocytes % (Manual) 7, Monocytes % (Manual) 1, Band Neutrophils 7, Platelet Estimate NORMAL, Blood Morphology Comment NORMAL, Sodium Level 138, Potassium Level 3.6, Chloride Level 112H, Carbon Dioxide Level 15L, Anion Gap 11, Blood Urea Nitrogen 12, Creatinine 0.64, Estimat Glomerular Filtration Rate 123, BUN/Creatinine Ratio 19, Glucose Level 115H, Calcium Level 8.3L, Corrected Calcium 9.2, Total Bilirubin 0.6, Aspartate Amino Transf (AST/SGOT) 17, Alanine Aminotransferase (ALT/SGPT) 12, Alkaline Phosphatase 147H, Total Protein 6.0L, Albumin 2.9L 03/30/23 06:11: White Blood Count 12.1H, Red Blood Count 3.41L, Hemoglobin 9.9L, Hematocrit 30L, Mean Corpuscular Volume 88, Mean Corpuscular Hemoglobin 29, Mean Corpuscular Hemoglobin Concent 33, Red Cell Distribution Width 14.3, Platelet Count 158, Mean Platelet Volume 10.0, Immature Granulocyte % (Auto) 0, Neutrophils (%) (Auto) 83H, Lymphocytes (%) (Auto) 12, Monocytes (%) (Auto) 5, Eosinophils (%) (Auto) 1, Basophils (%) (Auto) 0, Neutrophils # (Auto) 10.0H, Lymphocytes # (Auto) 1.4, Monocytes # (Auto) 0.6, Eosinophils # (Auto) 0.1, Basophils # (Auto) 0.0, Immature Granulocyte # (Auto) 0.0 Home Meds Active No Active Prescriptions or Reported Medications Assessment/Pt Instructions Follow up with Dr. Mera in 6wk Discharge Physical Examination General Appearance: Alert, Oriented X3, Cooperative Psych/Mental Status: Mood NL Allergies: Coded Allergies: ondansetron (Verified Allergy, Unknown, 03/14/23) Discharge Summary Date of Admission March 28, 2023 at 17:09 Date of Discharge ASHLEY VILLAFANA DO March 31, 2023 09:29
== END 2023-03-31 10:50 | disposition home or self-care (01) | DRG 806 ==
LOC: LDRP 17:09
PROVIDERS: ADMIT Family Medicine; ATTEND Family Medicine
PROC: 10E0XZZ Delivery of Products of Conception, External Approach (ICD-10-PCS; principal; 2023-03-29)
PROC: 0KQM0ZZ Repair Perineum Muscle, Open Approach (ICD-10-PCS; 2023-03-29)
PROC: 10907ZC Drainage of Amniotic Fluid, Therapeutic from Products of Conception, Via Natural or Artificial Opening (ICD-10-PCS; 2023-03-29)
DX: O48.0 Post-term pregnancy (principal); D62 Acute posthemorrhagic anemia; Z37.0 Single live birth; Z3A.40 40 weeks gestation of pregnancy; O99.824 Streptococcus B carrier state complicating childbirth; Z89.511 Acquired absence of right leg below knee; O70.1 Second degree perineal laceration during delivery; O90.81 Anemia of the puerperium
CPT/HCPCS: 36415; 80053; 82570; 84156; 85007; 85025; 85027; 86780; 86850; 86900; 86901